=== PATIENT | female | born 1965 | race Caucasian/White ===

== ENCOUNTER → 2023-11-16 10:40 | Outpatient (REF) | payer OTHER, SELFPAY ==
[2023-11-16 12:25] LABS: % Basophils 1.2 % (0-2); % Eosinophils 3.1 % (0-6); % Immature Granulocytes 0.4 % (0-0.5); % Lymphocytes 25.3 % (20.5-51.1); % Monocytes 7.5 % (1.7-9.3); % Neutrophils 62.5 % (42.2-75.2); Absolute Basophils 0.1 10^3/uL (0-0.2); Absolute Eosinophils 0.2 10^3/uL (0-0.7); Absolute Lymphocytes 1.9 10^3/uL (1.2-3.4); Absolute Monocytes 0.6 10^3/uL (0.1-0.6); Absolute Neutrophils 4.7 10^3/uL (1.4-6.5); Hematocrit 34.8 % (37.0-47.0); Hemoglobin 11.7 g/dL (12.0-16.0); Mean Corp Hgb Conc. 33.6 g/dL (33.0-37.0); Mean Corpuscular Hgb 29.6 pg (27.0-31.0); Mean Corpuscular Volume 88.1 fL (81.0-99.0); Mean Platelet Volume 10.6 fL (7.4-10.4); Nucleated Red Blood Cells % 0 %; Platelet Count 247 10^3/uL (130-400); Red Blood Cell Count 3.95 10^6/uL (4.20-5.40); Red Cell Dist. Width 12.7 % (11.5-14.5); White Blood Cell Count 7.4 10^3/uL (4.8-10.8)
[2023-11-16 13:12] LABS: ALT (SGPT) 21 U/L (0-35); AST (SGOT) 25 U/L (14-36); Albumin 4.3 g/dl (3.5-5.0); Alkaline Phosphatase 119 U/L (38-126); Blood Urea Nitrogen 22 mg/dl (7-17); Calcium 9.3 mg/dl (8.4-10.2); Carbon Dioxide 28 mmol/L (22-30); Chloride 103 mmol/L (98-107); Glucose 97 mg/dl (70-99); HDL Cholesterol 61 mg/dl; LDL Cholesterol, Calculated 129 mg/dl; Potassium 4.4 mmol/L (3.5-5.1); Sodium 140 mmol/L (135-145); Total Bilirubin 1.1 mg/dl (0.2-1.3); Total Cholesterol 217 mg/dl (50-199); Total Protein 6.6 g/dl (6.3-8.2); Triglyceride 139 mg/dl (10-149); Very Low Density Lipoprotein 27 mg/dl (0-30); eGFR > 60.00
[2023-11-16 13:41] LABS: TSH Reflex To Free T4 1.65 uIU/ml (0.47-4.68)
== END ==
LOC: HWLAB 10:40
PROVIDERS: ATTENDING PHYSICIAN Internal Medicine
DX: D64.9 Anemia, unspecified (principal); K21.9 Gastro-esophageal reflux disease without esophagitis; Z00.00 Encounter for general adult medical examination without abnormal findings; E78.5 Hyperlipidemia, unspecified
CPT/HCPCS: 36415; 80053; 80061; 84443; 85025

== ENCOUNTER → 2024-10-09 08:31 | Outpatient (REF) | payer OTHER, SELFPAY | LOC: WDC 08:31 | PROVIDERS: ATTENDING PHYSICIAN Obstetrics & Gynecology; FAMILY PHYSICIAN Internal Medicine | DX: Z12.31 Encounter for screening mammogram for malignant neoplasm of breast (principal) | CPT/HCPCS: 77063; 77067 ==

== ENCOUNTER → 2024-10-17 10:10 | Outpatient (REF) | payer OTHER, SELFPAY | LOC: WDC 10:10 | PROVIDERS: ATTENDING PHYSICIAN Obstetrics & Gynecology; FAMILY PHYSICIAN Internal Medicine | DX: R92.8 Other abnormal and inconclusive findings on diagnostic imaging of breast (principal) | CPT/HCPCS: 76642 ==

== ENCOUNTER → 2025-06-12 10:03 | Outpatient (REF) | payer OTHER, SELFPAY ==
[2025-06-12 12:10] LABS: Hematocrit 34.2 % (37.0-47.0); Hemoglobin 11.1 g/dL (12.0-16.0); Mean Corp Hgb Conc. 32.5 g/dL (33.0-37.0); Mean Corpuscular Volume 87.9 fL (81.0-99.0); Nucleated Red Blood Cells % 0 %; Platelet Count 256 10^3/uL (130-400); Red Cell Dist. Width 13.0 % (11.5-14.5)
[2025-06-12 12:16] LABS: ALT (SGPT) 24 U/L (0-35); AST (SGOT) 24 U/L (14-36); Albumin 4.7 g/dl (3.5-5.0); Alkaline Phosphatase 112 U/L (38-126); Blood Urea Nitrogen 26 mg/dl (7-17); Calcium 9.6 mg/dl (8.4-10.2); Carbon Dioxide 23 mmol/L (22-30); Chloride 109 mmol/L (98-107); Glucose 97 mg/dl (70-99); HDL Cholesterol 74 mg/dl; LDL Cholesterol, Calculated 130 mg/dl; Potassium 4.5 mmol/L (3.5-5.1); Sodium 140 mmol/L (135-145); Total Protein 7.0 g/dl (6.3-8.2); Very Low Density Lipoprotein 17 mg/dl (0-30); eGFR > 60.00
== END ==
LOC: HWLAB 10:03
PROVIDERS: ATTENDING PHYSICIAN Internal Medicine
DX: Z00.00 Encounter for general adult medical examination without abnormal findings (principal); Z13.1 Encounter for screening for diabetes mellitus; D64.9 Anemia, unspecified; K21.9 Gastro-esophageal reflux disease without esophagitis; E78.5 Hyperlipidemia, unspecified
CPT/HCPCS: 36415; 80053; 80061; 84443; 85025

== ENCOUNTER 2025-07-23 11:22 | Emergency (ER) | payer OTHER, SELFPAY ==
[2025-07-23 11:24] VITALS: BP 122/78
--- NOTE | 2025-07-23 14:11 | ED.GENMED ---
History of Present Illness
General
Chief Complaint: Fall
Source: patient
Exam Limitations: none
Time Seen by Provider: 07/23/25 13:54
Nursing documentation reviewed up to this point in time: agreed with
History of Present Illness
History of Present Illness:
see MDM
Past History
Past History
ED Past Medical History: Other (Anemia )
ED Past Surgical History: Other (Trauma surgery do a pancreas injury )
Social History
Tobacco: Non-smoker
Personal: Single
Living: with family
Employment: Employed
Family History
Family History: Negative Early CAD
Review of Systems
Review of Systems
Allergies reviewed?: Yes
All Other Systems: Not applicable
Phy Exam
Physical Exam
Physical Exam:
see MDM
Course
Orders/Labs/Results
Orders:
Orders
07/23/25 11:27
CT Cervical Spine W/o Iv Contr Urgent
Comment:
Reason For Exam: injury
CT Facial Bones W/o Iv Contras Urgent
Comment:
Reason For Exam: injury
CT Head W/o Iv Contrast Urgent
Comment:
Reason For Exam: injury
07/23/25 14:19
Ibuprofen [Motrin] 600 mg PO NOW STA
Vital Signs
Initial and Last Documented VS:
Initial Vital Signs
Temp Pulse Resp BP Pulse Ox
36.7 C 75 20 122/78 98
07/23/25 11:24 07/23/25 11:24 07/23/25 11:24 07/23/25 11:24 07/23/25 11:24
Last Documented Vital Signs
Temp Pulse Resp BP Pulse Ox
36.7 C 65 18 132/71 99
07/23/25 11:24 07/23/25 14:33 07/23/25 14:33 07/23/25 14:33 07/23/25 14:33
MDM/Problems Addressed
MDM/Problems Addressed:
Note:
CHIEF COMPLAINT(S)
Head and facial injury due to a fall.
HISTORY OF PRESENT ILLNESS
The patient is a 59-year-old female who experienced a fall at approximately 2 hours ago in the parking lot of a store, where she tripped on uneven pavement. She attempted to catch herself during the fall, leading to an impact on her face,
particularly affecting her nose, which appears to be the most injured area. There was no loss of consciousness. The patient reported bleeding from her mouth and nose and expressed difficulty discerning if the swelling in her nose was due to an
impact or general swelling. She experienced some nausea but no vomiting, which she attributed to swallowing blood. The patient expressed uncertainty about whether the injury felt similar to a past concussion. She did not report any neurological
deficits such as confusion, dizziness, or weakness, and indicated that her arms and chest were not affected by the fall.
does also have a mouth wound in lower lip
no active bleeding
tetanus las tmonth
no thinners
no
EXTERNAL RECORDS REVIEWED
Imaging studies including computed tomography scans of the head, face, and cervical spine were reviewed. The results showed no intracranial bleeding or fractures apart from a distal nasal fracture.
MEDICATIONS
The patient was offered ibuprofen for pain management following the injury.
REVIEW OF SYSTEMS
- General: No loss of consciousness.
- Head: No significant trauma observed on imaging.
- Face: Nasal fracture noted in the distal part.
- Nose and Mouth: Bleeding observed.
- Neurological: No confusion, dizziness, or neurological deficits reported.
- Gastrointestinal: Nausea present but no vomiting.
PHYSICAL EXAM
Nursing notes reviewed and vital signs reviewed.
GENERAL: Alert , in no apparent distress
HEAD: NCAT
FACE: nasal swelling symmetric, superficial abrasio nmid nose
no forehead wounds
NECK: no midline tenderness, active ROM intact, no paraspinal muscle tenderness;
EYE: pupils equal and reactive, EOMs intact.
ENT: o/p clr, mmm. no hemotympanum
0.5 cm linear laceration buccal mucosa lower lip
no dental trauma
dried blood in nostrils b/l
no actvie bleeding
CARDIAC: Regular rate and rhythm, no edema
LUNGS: Clear breath sounds bilaterally, no acute respiratory distress, no wheezes/rales/rhonchi
ABDOMEN: Soft, without focal tenderness, no r/g, no cvat
NEUROLOGICAL: Alert and oriented, no focal neuro deficits, CN intact, 5/5 strength, sensation intact
SKIN: Warm and dry, abrasion
MUSCULOSKELETAL: No edema, well perfused.
PSYCH: Normal and appropriate interaction.
PLAN
- Referral to an Ear, Nose, and Throat specialist for further evaluation of the nasal fracture and potential realignment once swelling decreases.
- Pain management with ibuprofen as requested by the patient.
- Ice application to the nasal area. Instructions were given to apply a cold pack for 20 minutes on and then 40 minutes off, frequently.
- Encouragement of rest and brain rest to allow healing, suggesting days off work and returning on Wednesday.
- Use of warm salt water mouth rinses post meals to aid healing of mouth cuts.
- Soft diet advised to prevent irritation to mouth injuries.
DIFFERENTIAL DIAGNOSIS
The Differential Diagnosis includes, in no particular order and is not limited to:
1. Nasal fracture
2. Facial contusion
3. Concussion
4. Epistaxis due to trauma
5. Dental injury
6. Muscle strain in the neck
7. Laceration to the mouth
8. Vestibular dysfunction
9. Syncope
10. Soft tissue swelling due to trauma
59-year-old female with a mechanical trip and fall onto her face this morning. She has some pain minimally in her palms but no significant wounds and can move them normally. She has a nasal swelling with an abrasion, had some bleeding from her
nose which resolved. She has a laceration inside her lower lip which is not gaping and does not require repair. Other than nasal bone tenderness she has no other facial bone tenderness, painless range of motion of her neck. Patient had imaging
with CT CT scans of her head neck and facial bones. Findings are positive for nasal bone fracture. Otherwise there were no findings. Patient will be discharged, doubt that she has a concussion but given concussive instructions for brain rest for
today and tomorrow. Work note for work written to excuse her from today and tomorrow. Ice off-and-on, follow-up with ENT. Rinse out her mouth with warm salt water after eating
*Pulse Oximetry
SaO2: 98
Oxygen Mode of Delivery: Room air
Patient hypoxic: no (99)
*Critical Care Note
Total Time (30-74mins, 75-104mins- exclusive of procedures): Not Applicable
ED Attending Note
-
Portions of this chart may have been created with voice recognition software.� Occasional wrong word or��sound alike� substitutions may have occurred due to the inherent limitations of voice recognition software.
Discharge Plan
Departure
Patient Disposition: Home (Routine Discharge)
Date of Disposition: 07/23/25
Time of Disposition: 14:16
Patient with high blood pressure during this ER visit?: No
Condition: Fair
Covid-19: Not Applicable
Discharge Problem:
Fracture closed, nasal bone, Laceration of mouth, Fall
Instructions: Head Injury in Adults (DC), Mouth and dental injuries in adults, Nose Fracture ED
Prescriptions:
No Action
No Current Medications
0
Referrals:
Binh Louis MD [Active, Otology] - Follow up in 2-3 days
Ofelia Pack DO [Family Provider, Family Practice]
Stand Alone Forms: Return to Work
Activity Restrictions/Additional Instructions:
You CAT scans showed that you have a nose fracture. You did have some straightening of your spine that could suggest some pulled muscles in your neck but no fractures and no traumatic brain injury. It is doubtful that you have a concussion but it
is recommended that you rest your brain today and tomorrow limiting your phone, TV, cell phone, computer use. After that you can return to normal activities. For that nasal fracture ice off-and-on 20 minutes on, 40 minutes off today. Sleep with
an extra pillow to help with swelling. If you are severely stuffy in your nose you can try a dose of Afrin which is [id number]. This is your nose once at night for 2 nights in a row. Take Tylenol and ibuprofen for pain. For the mouth wound
you should rinse your mouth out with warm salt water after eating. It will close up on its own. Return for severe pain, fever, vomiting, severe swelling, etc. Otherwise follow-up with your doctor.
Interventions
Interventions:
*Risk Screen - Suicide Last Done: 07/23/25 12:09
*General Assessment Last Done: 07/23/25 11:24
*Neglect/Abuse Screening Last Done: 07/23/25 12:09
*ED- Fall Risk Assessment Last Done: 07/23/25 12:09
*ED COVID-19 Vaccine History Last Done: 07/23/25 12:09
*ED Influenza Vaccine History Last Done: 07/23/25 12:09
*Nursing Disposition Last Done: 07/23/25 14:33
ED-Musculoskeletal Assessment Last Done: 07/23/25 12:09
ED- Neurological Assessment Last Done: 07/23/25 12:09
ED-Skin Assessment Last Done: 07/23/25 12:09
Discharge Date and Time
Discharge Date/Time: 07/23/25 14:37
Print Language: SWEDISH
[2025-07-23] MEDS: MOTRIN 600 MG PO (14:31)
[2025-07-23 14:33] VITALS: BP 132/71
== END 2025-07-23 14:37 | disposition home or self-care (01) ==
LOC: EMR 11:22
PROVIDERS: EMERGENCY PHYSICIAN Emergency Medicine; FAMILY PHYSICIAN Internal Medicine
DX: S02.2XXA Fracture of nasal bones, initial encounter for closed fracture (principal); S01.512A Laceration without foreign body of oral cavity, initial encounter; W18.09XA Striking against other object with subsequent fall, initial encounter; Y93.01 Activity, walking, marching and hiking; Y92.481 Parking lot as the place of occurrence of the external cause
CPT/HCPCS: 99284; 70450; 70486; 72125